=== PATIENT | female | born 1955 | race Caucasian/White ===

== ENCOUNTER 2018-07-25 12:47 | Emergency (ER) | payer OTHER ==
[~2018-07-25] VITALS: Ht 167.6 cm; Wt 123.6 kg
[~2018-07-25 12:47] MED LIST: ANTIVERT25 MG PO; ASPIR-LOW81 MG PO; ASPIRIN325 MG PO; ASPIRIN81 M2 PO; BUPROBAN150 MG PO; COLCRYS0.6 MG PO; FERRO-TIME325 MG PO; FLUNISOLIDE25 ML BOTH NARES; FUROSEMIDE20 MG PO; LASIX20 MG PO; LEVOTHYROXINE50 MCG PO; LEVOXYL50 MCG PO; LIPITOR10 MG PO; LITE COAT ASPI325 M1 PO; LOSARTAN POTAS100 MG PO; LOTRISONE15 GM TP; MECLIZINE HCL25 MG PO; NORVASC2.5 MG PO; OXYCODONE H5 MG/5 ML PO; OXYCODONE HCL5 MG PO; PERCOCET 5/31 TABLET PO; PLAVIX75 MG PO; PRAVASTATIN SOD40 MG PO; TEGRETOL-XR,CA100 MG PO; TYLENOL EXTRA500 MG PO; VALIUM2 MG PO; ZOFRAN4 MG PO; ZOLOFT100 MG PO
[2018-07-25 13:33] LABS: HEMATOCRIT 43.9 % (36.0-46.0); HEMOGLOBIN 14.7 G/DL (11.9-15.5); MCH 32.2 PG (29.0-34.0); MCHC 33.5 G/DL (30.0-36.0); MCV 96.1 FL (83-99); PLATELET COUNT 287 K/uL (156-360); RBC DIS.WIDTH-CV 12.4 % (11.8-14.6); RED BLOOD COUNT 4.57 M/uL (3.80-5.20); WHITE BLOOD COUNT 6.4 K/uL (4.1-10.2)
[2018-07-25 13:45] LABS: CHLORIDE 108 mEq/L (99-109); POTASSIUM 4.5 mEq/L (3.7-5.4); SODIUM 142 mEq/L (136-147)
[2018-07-25 13:46] LABS: GLUCOSE 105 mg/dL (70-99)
[2018-07-25 13:50] LABS: CREATININE 0.8 mg/dL (0.6-1.3); GFR ESTIMATE (CALCULATED) > 59 mL/min/
[2018-07-25 13:51] LABS: UREA NITROGEN (BUN) 11 mg/dL (9-23)
[2018-07-25 14:30] VITALS: BP 147/86
== END 2018-07-25 14:33 | disposition home or self-care (01) ==
LOC: EME 12:47
DX: M54.12 Radiculopathy, cervical region (principal); I10 Essential (primary) hypertension; M79.7 Fibromyalgia; E03.9 Hypothyroidism, unspecified; E66.9 Obesity, unspecified; F32.9 Major depressive disorder, single episode, unspecified; Z79.82 Long term (current) use of aspirin; Z86.73 Personal history of transient ischemic attack (TIA), and cerebral infarction without residual deficits; Z87.442 Personal history of urinary calculi; Z88.2 Allergy status to sulfonamides; Z88.5 Allergy status to narcotic agent; Z88.8 Allergy status to other drugs, medicaments and biological substances
CPT/HCPCS: 70450; 71046; 80048; 85027; 93005; 99281; 99284